=== PATIENT | male | born 2000 | race American Indian/Alaskan Native ===

== ENCOUNTER 2020-05-23 20:06 | Emergency (ER) | payer SELFPAY ==
[2020-05-23] MEDS ORDERED: HYDROcodone/ACETAMINOPHEN 5-325 MG TAB PO ONE (20:44)
--- NOTE | 2020-05-23 20:48 | Emergency Department Report ---
ED Upper Extremity Inj HPI - General Chief Complaint: Extremity Injury, Upper Stated Complaint: RT HAND INJURY/HIT WALL Time Seen by Provider: 05/23/20 20:36 Source: patient Mode of arrival: Ambulatory Limitations: No Limitations - History of Present Illness Initial Comments: Patient is a 20-year-old male presents emergency room with complaints of a right hand injury that occurred 2 hours prior to arrival. Patient states that he got angry and punched through a wall. He has associated right hand pain and swelling. He states he has increased pain with movement. He has a couple abrasions present to the hand. He states his tetanus immunization is up-to-date. He denies any numbness or weakness. He denies ever injuring in the past. No past medical history. No allergies to medications. - Related Data Previous Rx's Medication Instructions Recorded Last Taken Type Acetaminophen/Codeine [Tylenol 1 tab PO Q6H PRN #12 tab 05/23/20 Unknown Rx /Codeine # 3 tab] Ibuprofen [Motrin 400 MG tab] 400 mg PO Q8H PRN #20 tablet 05/23/20 Unknown Rx Neomycin/Bacitracin/Polymyxinb 1 applicatio TP BID #14 oint...g. 05/23/20 Unknown Rx [Triple Antibiotic Ointment] Allergies Allergy/AdvReac Type Severity Reaction Status Date / Time No Known Allergies Allergy Unverified 05/23/20 20:49 ED Review of Systems ROS: Stated complaint: RT HAND INJURY/HIT WALL Other details as noted in HPI Comment: All other systems reviewed and negative ED Past Medical Hx - Past Medical History Previous Medical History?: No - Surgical History Past Surgical History?: No - Social History Smoking Status: Never Smoker Substance Use Type: None - Medications Home Medications: Home Medications Medication Instructions Recorded Confirmed Last Taken Type Acetaminophen/Codeine [Tylenol 1 tab PO Q6H PRN #12 tab 05/23/20 Unknown Rx /Codeine # 3 tab] Ibuprofen [Motrin 400 MG tab] 400 mg PO Q8H PRN #20 tablet 05/23/20 Unknown Rx Neomycin/Bacitracin/Polymyxinb 1 applicatio TP BID #14 oint...g. 05/23/20 Unknown Rx [Triple Antibiotic Ointment] ED Physical Exam - General Limitations: No Limitations General appearance: alert, in no apparent distress - Head Head exam: Present: atraumatic, normocephalic - Eye Eye exam: Present: normal appearance - ENT ENT exam: Present: mucous membranes moist - Respiratory Respiratory exam: Absent: respiratory distress, accessory muscle use - Extremities Exam Extremities exam: Present: other (ttp and edema present to the dorsal surface of the right hand overlying the 4th and 5th metacarpal, decreased ROM secondary to pain, no ttp of the digits, snuffbox, wrist, elbow or shoulder, neurovascularly intact, a couple small superficial abrasions to the dorsal hand) - Neurological Exam Neurological exam: Present: alert, oriented X3 - Psychiatric Psychiatric exam: Present: normal affect, normal mood - Skin Skin exam: Present: warm, dry ED Course Vital Signs 05/23/20 05/23/20 05/23/20 20:39 20:50 20:52 Temperature 98.1 F Pulse Rate 72 Respiratory 16 18 18 Rate Blood Pressure 103/67 Blood Pressure [Left] O2 Sat by Pulse 98 100 Oximetry 05/23/20 20:55 Temperature 98.3 F Pulse Rate 75 Respiratory 18 Rate Blood Pressure Blood Pressure 121/73 [Left] O2 Sat by Pulse 100 Oximetry ED Medical Decision Making - Radiology Data Radiology results: report reviewed Ordering Physician: AARON VEGA Date of Service: 05/23/20 Procedure(s): XR hand 3+V RT Accession Number(s): [id number] cc: AARON VEGA Fluoro Time In Minutes: RIGHT HAND, 3 VIEWS INDICATION / CLINICAL INFORMATION: Trauma, patient punched wall complaining of pain and swelling.. COMPARISON: None available. FINDINGS: There is mildly displaced vertical fracture involving the base of the fourth metacarpal, extending into the carpometacarpal joint. No additional fractures of the hand are identified. IMPRESSION: Mildly displaced fracture involving the proximal aspect of the fourth metacarpal with extension into the carpometacarpal joint. Signer Name: Neris Boyer MD Signed: 05/23/2020 9:44 PM Workstation Name: [id number] Transcribed By: Dictated By: Neris Boyer MD Electronically Authenticated By: Neris Boyer MD Signed Date/Time: 05/23/202143 DD/ 40 TD/TT: - Medical Decision Making Patient is a 20-year-old male presents emergency room with complaints of a right hand injury that occurred 2 hours prior to arrival. Patient states that he got angry and punched through a wall. He has associated right hand pain and swelling. He states he has increased pain with movement. He has a couple abrasions present to the hand. He states his tetanus immunization is up-to-date. He denies any numbness or weakness. He denies ever injuring in the past. No past medical history. No allergies to medications. Vitals are normal. On exam:ttp and edema present to the dorsal surface of the right hand overlying the 4th and 5th metacarpal, decreased ROM secondary to pain, no ttp of the digits, snuffbox, wrist, elbow or shoulder, neurovascularly intact, a couple small superficial abrasions to the dorsal hand. X-ray right hand: IMPRESSION: Mildly displaced fracture involving the proximal aspect of the fourth metacarpal with extension into the carpometacarpal joint. Patient given pain medication while in the emergency department as he did not drive and symptoms improved. Patient placed in a boxer splint by nurse and remained neurovascular intact. Discussed all results with patient answered questions. Discussed the importance of orthopedic follow-up. Given prescription for Tylenol with codeine, ibuprofen, triple antibiotic ointment. Advised patient Please use medication as prescribed. Do not drive or operate machinery while taking severe pain medication. Follow-up with an orthopedic doctor. Return to emergency room for any worsening symptoms. - Differential Diagnosis Strain, sprain, fracture, dislocation, contusion, tendinitis, abrasion Critical care attestation.: If time is entered above; I have spent that time in minutes in the direct care of this critically ill patient, excluding procedure time. ED Disposition Clinical Impression: Fracture of fourth metacarpal bone Qualifiers: Encounter type: initial encounter Fracture type: closed Metacarpal location: base Fracture alignment: displaced Laterality: right Qualified Code(s): S62.314A - Displaced fracture of base of fourth metacarpal bone, right hand, initial encounter for closed fracture Abrasion hand Qualifiers: Encounter type: initial encounter Laterality: right Qualified Code(s): S60.511A - Abrasion of right hand, initial encounter Disposition: TO HOME OR SELFCARE Is pt being admited?: No Does the pt Need Aspirin: No Condition: Stable Instructions: Abrasion, Metacarpal Fracture Additional Instructions: Please use medication as prescribed. Do not drive or operate machinery while taking severe pain medication. Follow-up with an orthopedic doctor. Return to emergency room for any worsening symptoms. Prescriptions: Ibuprofen [Motrin 400 MG tab] 400 mg PO Q8H PRN #20 tablet PRN Reason: Pain, Moderate (4-6) Neomycin/Bacitracin/Polymyxinb [Triple Antibiotic Ointment] 1 applicatio TP BID #14 oint...g. Acetaminophen/Codeine [Tylenol /Codeine # 3 tab] 1 tab PO Q6H PRN #12 tab PRN Reason: Pain , Severe (7-10) Referrals: [facility] [Provider Group] - 2-3 Days KATE PERRY MD [Staff Physician] - 2-3 Days PRIMARY MD SHARON [Primary Care Provider] - 2-3 Days Time of Disposition: 21:54 Print Language: [place]
[2020-05-23 20:55] VITALS: BP 121/73
--- NOTE | 2020-05-23 21:48 | XRay Report ---
RIGHT HAND, 3 VIEWS INDICATION / CLINICAL INFORMATION: Trauma, patient punched wall complaining of pain and swelling.. COMPARISON: None available. FINDINGS: There is mildly displaced vertical fracture involving the base of the fourth metacarpal, extending in to the carpometacarpal joint. No additional fractures of the hand are identified. IMPRESSION: Mildly displaced fracture involving the proximal aspect of the fourth metacarpal with ext ension into the carpometacarpal joint. Signer Name: Neris Boyer MD Signed: 05/23/2020 9:44 PM Workstation Name: [id number]
== END 2020-05-23 22:23 | disposition home or self-care (01) ==
LOC: ED 20:06
DX: S62.314A Displaced fracture of base of fourth metacarpal bone, right hand, initial encounter for closed fracture (principal); S60.511A Abrasion of right hand, initial encounter; Z79.899 Other long term (current) drug therapy; X58.XXXA Exposure to other specified factors, initial encounter; Y93.89 Activity, other specified; Y92.89 Other specified places as the place of occurrence of the external cause; Y99.8 Other external cause status

== ENCOUNTER 2021-08-23 20:06 | Emergency (ER) | payer OTHER ==
[2021-08-23 20:43] VITALS: BP 118/56
== END 2021-08-23 21:16 | disposition left against medical advice (07) ==
LOC: ED 20:06
DX: Z04.1 Encounter for examination and observation following transport accident (principal); Z53.21 Procedure and treatment not carried out due to patient leaving prior to being seen by health care provider; V87.7XXA Person injured in collision between other specified motor vehicles (traffic), initial encounter; Y93.89 Activity, other specified; Y92.488 Other paved roadways as the place of occurrence of the external cause; Y99.8 Other external cause status